=== PATIENT | male | born 1980 | race Caucasian/White ===

== ENCOUNTER 2019-11-16 23:14 | Emergency (ER) | payer MEDICAID, SELFPAY ==
[~2019-11-16] VITALS: Ht 165.1 cm; Wt 93.4 kg
[2019-11-16 23:44] VITALS: Ht 165.1 cm; Wt 93.4 kg
[2019-11-17 02:39] VITALS: BP 116/68
== END 2019-11-17 02:39 | disposition home or self-care (01) ==
LOC: ED 23:14
DX: U07.1 COVID-19 (principal); J12.89 Other viral pneumonia
CPT/HCPCS: Q0092; U0003-CS